=== PATIENT | female | born 1990 | race Caucasian/White ===

== ENCOUNTER 2017-05-17 07:58 | Emergency (ER) | payer OTHER ==
[~2017-05-17] VITALS: Ht 172.7 cm; Wt 81.6 kg
[2017-05-17 08:02] VITALS: TEMP 37; Ht 172.7 cm; Wt 81.6 kg
[2017-05-17 08:13] VITALS: O2SAT 98
--- NOTE | 2017-05-17 08:18 | EMERGENCY ROOM VISIT NOTE ---
History First contact with patient: 08:07 Chief Complaint: CHEST PAIN Stated Complaint: CHEST PAIN, NAUSEA, ARM PAIN Nursing Triage Summary: Pt reports chest discomfort for a couple weeks, worse the past two days. Pain is on the left side of chest, started to radiate into left arm today at 0400. "I feel like every once in a while I have to catch my breath." + lightheaded Pt is here from [place], [place]. History of Present Illness The patient is a 27 year old female who presents to the Emergency Room via private vehicle with complaints of "chest pain, nausea, arm pain". The patient states that she has had left anterior chest discomfort/pain for the past few weeks. She states over the past 2 days it is worsened and is now on the left side of her chest. She states it radiated in the left arm today. This began around 0400 hrs. She states that she feels a once a while it is difficult to catch her breath. She is a history of recent travel to many states in the past few weeks. There is no active past medical history. Nothing makes the pain better, and it is sometimes worse with exertion. It is worse with palpation. Review of Systems A complete 10-point Review of Systems was discussed with the patient, with pertinent positives and negatives listed in the History of Present Illness. All remaining Review of Systems questions can be considered negative unless otherwise specified. Past Medical/Surgical History No pertinent. Family History No pertinent. Social History Smoking Status: Never Smoker Patient is from [facility]. Current/Historical Medications Miscellaneous Medications Levonorgestrel (Iud) (Mirena) Physical Exam Vital Signs Date Time Temp Pulse Resp B/P (MAP) Pulse Ox O2 Delivery O2 Flow Rate FiO2 05/17/17 09:11 80 18 103/63 98 Room Air 05/17/17 08:13 98 Room Air 05/17/17 08:11 86 05/17/17 08:02 37.0 89 18 139/85 97 Room Air Physical Exam VITAL SIGNS - Vital signs and nursing notes were reviewed. Stable and nontoxic tachycardic. GENERAL -27-year-old female appearing her stated age who is in no acute distress. Communicates well with provider and answers questions appropriately. SKIN - Without rashes. HEAD - NC/AT. EYES - Sclera anicteric. EARS - No deformities of external structures noted on gross examination bilaterally. No pain elicited with palpation of the tragus bilaterally. External auditory canals without discharge or otorrhea. Tympanic membranes pearly easley without retraction or bulging. No fluid or purulent material visualized behind the TM. Handle of malleus, umbo, cone of light, pars tensa/ flaccid all easily visualized. NOSE - Midline and without cyanosis. No epistaxis or purulent drainage noted. MOUTH/OROPHARYNX - Without perioral cyanosis. NECK - Neck with FROM. Supple to palpation. LUNGS - Chest wall symmetric without accessory muscle use, intercostals retractions, or central cyanosis. Normal vesicular breath sounds CTA B/L. No wheezes, rales, or rhonchi appreciated. CARDIAC - RRR with S1/S2. No murmur, rubs, or gallops appreciated. There is reversible tenderness over the left anterior chest. EXTREMITIES - No clubbing or peripheral cyanosis. No pretibial edema present. + 5/5 strength noted in UE/LE bilaterally. NEUROLOGIC - Cranial nerves II through XII grossly intact. Sensory intact to light touch throughout. PSYCH - A&O, and cooperates fully with examiner. Pt is very pleasant and interacts well with examiner. Medical Decision & Procedures ER Provider Diagnostic Interpretation: SINGLE VIEW CHEST CLINICAL HISTORY: Atypical chest pain. FINDINGS: An AP, portable, upright chest radiograph is obtained. No prior studies are available for comparison at the time of dictation. The cardiomediastinal silhouette is unremarkable. The lungs and pleural spaces are clear. No pneumothorax is seen. The bony thorax is grossly intact. IMPRESSION: No active disease in the chest. Electronically signed by: Antwon Crowell M.D. 05/17/2017 8:45 AM Dictated Date/Time: 05/17/2017 8:45 AM Laboratory Results 05/17/17 08:20 Red Blood Count 4.94, Mean Corpuscular Volume 89.9, Mean Corpuscular Hemoglobin 30.8, Mean Corpuscular Hemoglobin Concent 34.2, Mean Platelet Volume 11.0, Neutrophils (%) (Auto) 53.1, Lymphocytes (%) (Auto) 36.3, Monocytes (%) (Auto) 6.8, Eosinophils (%) (Auto) 3.0, Basophils (%) (Auto) 0.7, Neutrophils # (Auto) 4.35, Lymphocytes # (Auto) 2.98, Monocytes # (Auto) 0.56, Eosinophils # (Auto) 0.25, Basophils # (Auto) 0.06 05/17/17 08:20 Test 05/17/17 08:20 05/17/17 08:25 05/17/17 08:30 05/17/17 08:34 White Blood Count 8.21 K/uL (4.8-10.8) Red Blood Count 4.94 M/uL (4.2-5.4) Hemoglobin 15.2 g/dL (12.0-16.0) Hematocrit 44.4 % (37-47) Mean Corpuscular Volume 89.9 fL (80-100) Mean Corpuscular Hemoglobin 30.8 pg (25-34) Mean Corpuscular Hemoglobin Concent 34.2 g/dl (32-36) Platelet Count 229 K/uL (130-400) Mean Platelet Volume 11.0 fL (7.4-10.4) Neutrophils (%) (Auto) 53.1 % Lymphocytes (%) (Auto) 36.3 % Monocytes (%) (Auto) 6.8 % Eosinophils (%) (Auto) 3.0 % Basophils (%) (Auto) 0.7 % Neutrophils # (Auto) 4.35 K/uL (1.4-6.5) Lymphocytes # (Auto) 2.98 K/uL (1.2-3.4) Monocytes # (Auto) 0.56 K/uL (0.11-0.59) Eosinophils # (Auto) 0.25 K/uL (0-0.5) Basophils # (Auto) 0.06 K/uL (0-0.2) RDW Standard Deviation 39.8 fL (36.4-46.3) RDW Coefficient of Variation 12.3 % (11.5-14.5) Immature Granulocyte % (Auto) 0.1 % Immature Granulocyte # (Auto) 0.01 K/uL (0.00-0.02) Erythrocyte Sedimentation Rate 7 mm/hr (0-21) Prothrombin Time 10.4 SECONDS (9.0-12.0) Prothromb Time International Ratio 1.0 (0.9-1.1) Activated Partial Thromboplast Time 26.5 SECONDS (21.0-31.0) Partial Thromboplastin Ratio 1.0 Est Creatinine Clear Calc Drug Dose 111.4 ml/min Estimated GFR () 108.8 Estimated GFR (Non- 93.9 BUN/Creatinine Ratio 10.1 (10-20) Calcium Level 9.4 mg/dl (8.5-10.1) Magnesium Level 2.2 mg/dl (1.8-2.4) Total Bilirubin 0.3 mg/dl (0.2-1) Aspartate Amino Transf (AST/SGOT) 39 U/L (15-37) Alanine Aminotransferase (ALT/SGPT) 77 U/L (12-78) Alkaline Phosphatase 66 U/L (45-117) Troponin I < 0.015 ng/ml (0-0.045) C-Reactive Protein < 0.29 mg/dl (0-0.29) Total Protein 8.5 gm/dl (6.4-8.2) Albumin 4.6 gm/dl (3.4-5.0) Globulin 3.9 gm/dl (2.5-4.0) Albumin/Globulin Ratio 1.2 (0.9-2) Thyroid Stimulating Hormone (TSH) 1.670 uIu/ml (0.300-4.500) Lyme Disease IgG Antibody NEG (NEG) Lyme Disease IgM Antibody NEG (NEG) Bedside D-Dimer 190 ng/mlFEU (0-450) Bedside Troponin I < 0.030 ng/ml (0-0.045) Urine Color YELLOW Urine Appearance CLEAR (CLEAR) Urine pH 8.5 (4.5-7.5) Urine Specific Hardy 1.014 (1.000-1.030) Urine Protein NEG (NEG) Urine Glucose (UA) NEG (NEG) Urine Ketones NEG (NEG) Urine Occult Blood NEG (NEG) Urine Nitrite NEG (NEG) Urine Bilirubin NEG (NEG) Urine Urobilinogen NEG (NEG) Urine Leukocyte Esterase NEG (NEG) Urine Test NEG (NEG) Bedside Hemoglobin 15.6 g/dl (12.0-16.0) Bedside Hematocrit 46 % (37-47) Bedside Sodium 139 mEq/L (135-144) Bedside Potassium 3.7 mEq/L (3.3-5.0) Bedside Chloride 98 mEq/L (101-112) Bedside Total CO2 29 mEq/l (24-31) Anion Gap 17.0 mmol/L (16-25) Bedside Blood Urea Nitrogen 24 mg/dl (7-18) Bedside Creatinine 1.2 mg/dl (0.6-1.3) Bedside Glucose (other) 143 mg/dl (70-99) Bedside Ionized Calcium (Demian) 1.16 mmol/l (1.12-1.32) Medical Decision Patient was seen and evaluated as above. She presents to us today with chest pain. She notes it's been going on for the past few weeks, but over the past 2 days has worsened. She had at around 6 PM last night and called the on-call medical radiation tech, who recommended getting this checked. She went to bed and was feeling slightly better but woke up and it was worse this morning around 4 AM. She states that she wanted to get this checked therefore prompting her visit here today. She notes it is a light discomfort when it started and now the pain is sharp. She states that it is minimally worse with exertion, but nothing makes it better. Pain is a 6/10. She denies any heart problems or recent surgeries. Last surgery was an appendectomy 2 years ago. She did have lots of recent travel but her d-dimer here was negative. No bleeding disorders. No recent leg swelling or chance of . Her bedside EKG was obtained and reveals normal sinus rhythm, rate of 76 bpm. No ectopy or ischemic change. Troponin negative. Vital signs appropriate. CBC reveals no leukocytosis or anemia. ESR normal. Patient's metabolic panel reveals no evidence of kidney or liver failure. AST is high at 39. She notes drinking wine recently. No Tylenol use. TSH normal. Urine reveals high pH other was negative. Negative pronator test. Lyme testing negative. Chest x-ray negative. Given the patient's onset of symptoms have been greater than 6 hours , and the troponin being negative, d-dimer being negative, EKG looking appropriate as well as normal blood work overall I suspect she is stable for outpatient management. The pain is also reproducible on exam. I'm favoring the muscle related pain. At this time she was educated upon management, educated upon worrisome symptoms in which to return, had questions or purulent discharge, and was discharged home in good condition. In evaluation treatment this patient following differential diagnoses were tinkle [place], PE, pericarditis, costochondritis, among others. Impression Primary Impression: Chest wall pain Departure Information Dispostion Home / Self-Care Condition GOOD Referrals No Doctor, Assigned (PCP) Patient Instructions My [facility] Additional Instructions You have been treated in the Emergency Department your chest pain. Laboratory results and imaging studies have ruled out any emergent causes for your chest pain which would warrant admission or surgery. For pain control, you can use the following [id number] medicines (if >12 yo): - Regular strength (325mg/tab) Tylenol (acetaminophen) 2 tabs every 4-6 hours as needed. Do not exceed 12 tablets in a 24 hour period. Avoid taking more than 3 grams (3000 mg) of Tylenol per day. This includes any other sources of acetaminophen you may take on a regular basis. - Regular strength (200 mg/tab) Advil (ibuprofen) 1-2 tabs every 4-6 hours as needed. Do not exceed a dose of 3200 mg per day. Drink plenty of water and stay well hydrated. As with any trip to the Emergency Department, you should follow-up with your Primary Care Provider from today's visit. Return to the emergency department if your symptoms persist despite treatment plan outlined above or if the following symptoms occur: increased fevers, chills , worsening nausea/vomiting, blood in your stool or urine.
[2017-05-17 08:32] LABS: BASO % 0.7 %; BASO ABS # 0.06 K/uL (0-0.2); COMPLETE YES; HEMATOCRIT 44.4 % (37-47); IG% 0.1 %; LYMPH % 36.3 %; LYMPH ABS # 2.98 K/uL (1.2-3.4); MEAN CELL VOLUME 89.9 fL (80-100); MEAN CORPUSCULAR HEMOGLOBIN 30.8 pg (25-34); MEAN CORPUSCULAR HGB CONC 34.2 g/dl (32-36); MONO % 6.8 %; NEUT % 53.1 %; PLATELET COUNT 229 K/uL (130-400); RED BLOOD COUNT 4.94 M/uL (4.2-5.4); WHITE BLOOD COUNT 8.21 K/uL (4.8-10.8)
[2017-05-17 08:39] LABS: URINE APPEARANCE CLEAR (CLEAR); URINE BILIRUBIN NEG (NEG); URINE COLOR YELLOW; URINE NITRITE NEG (NEG); URINE PH 8.5 (4.5-7.5); URINE SPECIFIC GRAVITY 1.014 (1.000-1.030); UROBILINOGEN NEG (NEG); ZZUR CULT IF INDIC CLEAN CATCH NO
[2017-05-17 08:42] LABS: MANUAL MICROSCOPIC REQUIRED? NO; REVIEW REQ? NO
[2017-05-17 08:42] LABS: PROTHROMBIN TIME (PATIENT) 10.4 SECONDS (9.0-12.0)
[2017-05-17] MEDS ORDERED: LEVOIUD (08:44)
[2017-05-17 08:45] LABS: POINT OF CARE TROPONIN I < 0.030 ng/ml (0-0.045)
--- NOTE | 2017-05-17 08:46 | DIAGNOSTIC IMAGING REPORT ---
SINGLE VIEW CHEST CLINICAL HISTORY: Atypical chest pain. FINDINGS: An AP, portable, upright chest radiograph is obtained. No prior studies are available for comparison at the time of dictation. The cardiomediastinal silhouette is unremarkable. The lungs and pleural spaces are clear. No pneumothorax is seen. The bony thorax is grossly intact. IMPRESSION: No active disease in the chest. Electronically signed by: Antwon Crowell M.D. 05/17/2017 8:45 AM Dictated Date/Time: 05/17/2017 8:45 AM
[2017-05-17 08:47] LABS: ISTAT CREATININE 1.2 mg/dl (0.6-1.3); ISTAT HEMOGLOBIN 15.6 g/dl (12.0-16.0); ISTAT IONIZED CALCIUM 1.16 mmol/l (1.12-1.32)
[2017-05-17 08:50] LABS: ALT/SGPT 77 U/L (12-78); BLOOD UREA NITROGEN 9 mg/dl (7-18); BUN/CREATININE RATIO 10.1 (10-20); C-REACTIVE PROTEIN < 0.29 mg/dl (0-0.29); CALCIUM 9.4 mg/dl (8.5-10.1); CARBON DIOXIDE 26 mmol/L (21-32); CHLORIDE 103 mmol/L (98-107); CREATININE 0.85 mg/dl (0.60-1.20); GLUCOSE 82 mg/dl (70-99); MAGNESIUM 2.2 mg/dl (1.8-2.4); SODIUM 138 mmol/L (136-145)
[2017-05-17 09:01] LABS: ALB/GLOB RATIO 1.2 (0.9-2); ALKALINE PHOSPHATASE 66 U/L (45-117); AST/SGOT 39 U/L (15-37)
[2017-05-17 09:40] LABS: LYME DISEASE AB IGG NEG (NEG); LYME DISEASE AB IGM NEG (NEG)
[2017-05-17 10:03] VITALS: BP 100/61; PULSE 74; O2SAT 98
== END 2017-05-17 10:04 | disposition home or self-care (01) ==
LOC: C.EDB 08:01 → C.EDA 10:04
DX: R07.89 Other chest pain (principal); Z97.5 Presence of (intrauterine) contraceptive device